=== PATIENT | female | born 2005 | race Two or more races ===

== ENCOUNTER → 2025-04-09 | Emergency (ER) | payer OTHER ==
[~2025-04-09] VITALS: Ht 157.5 cm; Wt 70.3 kg
[2025-04-09 06:22] VITALS: BP 123/81; O2SAT 99
== END | disposition left against medical advice (07) ==
LOC: ER 06:12
DX: Z53.21 Procedure and treatment not carried out due to patient leaving prior to being seen by health care provider (principal)